=== PATIENT | male | born 1995 | race Caucasian/White ===

== ENCOUNTER 2019-01-29 15:39 | Emergency (ER) | payer MEDICAID ==
[~2019-01-29] VITALS: Ht 203.2 cm; Wt 104.0 kg
[2019-01-29 16:01] VITALS: BP 126/85
== END 2019-01-29 18:39 | disposition home or self-care (01) ==
LOC: ER 15:39
DX: J45.901 Unspecified asthma with (acute) exacerbation (principal)
CPT/HCPCS: 99283